=== PATIENT | male | born 1995 | race Caucasian/White ===

== ENCOUNTER 2023-03-18 08:33 | Emergency (ER) | payer OTHER, SELFPAY ==
[2023-03-18 08:59] VITALS: BP 112/45; PULSE 83; RESP 16; TEMP 36.9; O2SAT 99
--- NOTE | 2023-03-18 09:06 | ED.EXTPRO ---
HPI - Extremity Problem General Chief complaint: Extremity Problem,Nontraumatic Stated complaint: left thumb issue Time Seen by Provider: 03/18/23 09:06 Source: patient Mode of arrival: ambulatory Limitations: no limitations History of Present Illness HPI Narrative: 27 yo M presents with redness, swelling and pain to L thumb since yesterday. States cut himself while working at [employer] two days ago. Unsure what he cut himself on. Woke up this AM with red streaks and pain to L upper extremity Afebrile. full ROM to L arm/thumb. All systems reviewed and negative except as noted above. Related Data Home Medications Medication Instructions Recorded Confirmed No Home Medications 03/18/23 03/18/23 Allergies Allergy/AdvReac Type Severity Reaction Status Date / Time SHELLFISH Allergy Unknown THROAT Uncoded 03/18/23 09:03 TICKLES, VOMITS Review of Systems Review of Systems: CONSTITUTIONAL: Denies fever, chills, or sweats. EYES: Denies visual changes, redness, or discharge. ENT: Denies rhinorrhea, congestion, sore throat, or otalgia. CARDIOVASCULAR: Denies chest pain, palpitations, or edema. RESPIRATORY: Denies cough or dyspnea. GASTROINTESTINAL: Denies abdominal pain, nausea, vomiting, or diarrhea. GENITOURINARY: Denies dysuria or hematuria. SKIN: Reports redness, swelling and pain to left thumb with red streaks and pain traveling left upper extremity. MUSCULOSKELETAL: Denies back pain, joint pain, or myalgia. NEUROLOGIC: Denies headache, numbness, or weakness. PSYCHIATRIC: Denies anxiety or depression. All other systems reviewed are negative, except as documented in HPI. PMFSH Comments At time of signature, agree with nursing past medical, surgical, social and family history. There is no relevant family history pertinent to the presenting complaint. Exam Narrative: GENERAL: This is a well-nourished, well-developed patient, in no apparent distress. HEAD: normocephalic, atraumatic. EYES: PERRL. Sclera clear/white. Vision is grossly intact. EARS: External ears normal NOSE: External nose normal NECK: Neck supple, non-tender without lymphadenopathy, masses or thyromegaly. CARDIOVASCULAR: Regular rate and rhythm without murmurs, gallops, or rubs. RESPIRATORY: Clear to auscultation. Breath sounds equal bilaterally. No wheezes, rales, or rhonchi. SKIN: warm, Dry, intact with no suspicious lesions or rash, good texture and turgor. NEURO: awake, alert, and oriented to person, place and time. There were no obvious focal neurologic abnormalities. EXTREMITIES: No joint tenderness, effusion. redness, swelling and fluctuance to L thumb approx. 2 cm diameter with 3 to 4 red streaks traveling up L arm to axilla. Course Course Level of Care: Express Care Visit Vital Signs Vital signs: Vital Signs Temperature 36.9 C 03/18/23 08:59 Pulse Rate 83 03/18/23 08:59 Respiratory Rate 16 03/18/23 08:59 Blood Pressure 112/45 L 03/18/23 08:59 Pulse Oximetry 99 03/18/23 08:59 Temperature 36.9 C 03/18/23 08:59 Pulse Rate 83 03/18/23 08:59 Respiratory Rate 16 03/18/23 08:59 Blood Pressure 112/45 L 03/18/23 08:59 Pulse Oximetry 99 03/18/23 08:59 Reviewed Transfer Transfered to: [facility]: Other ( private car) Transfer rationale: transferring to ER for further evaluation of left upper extremity lymphangitis with abscess to left thumb. Accepting physician: Garrett POWERS MDM - Extremity (Nontraumatic) MDM Narrative Medical decision making narrative: Patient is aware of diagnosis, understands and agrees to treatment plan. Anticipatory guidance given. Patient agrees to follow-up as directed and is aware of reasons to seek care at the emergency department. Portions of this record may have been created with voice recognition software Differential Diagnosis Differential diagnosis: Likely other ( Abscess, lymphangitis) Discharge Plan Discharge C
== END 2023-03-18 10:04 | disposition short-term general hospital (02) ==
PROVIDERS: Emergency Provider Nurse Practitioner Family
DX: L02.512 Cutaneous abscess of left hand (principal); L03.124 Acute lymphangitis of left upper limb; W45.8XXA Other foreign body or object entering through skin, initial encounter
CPT/HCPCS: 99212; G0463

== ENCOUNTER 2023-03-18 11:45 | Emergency (ER) | payer OTHER, SELFPAY ==
--- NOTE | ~2023-03-18 | XR_ITS ---
EXAMINATION: XR hand LT min 3V DATE: 03/18/2023 15:00 INDICATION: Left thumb swelling. TECHNIQUE: 3 views of left hand were obtained. COMPARISON: Left hand radiographs 11/03/2012 FINDINGS: Bone alignment is normal. No acute fracture. There is an old healed fracture of diaphysis o f second metacarpal. Joint spaces are normal. IMPRESSION: 1. No acute fracture. 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 No acute fracture.
[2023-03-18 11:55] VITALS: BP 112/63; PULSE 72; RESP 18; TEMP 36.3; O2SAT 100
[2023-03-18 14:42] VITALS: BP 105/63; PULSE 71; RESP 18; O2SAT 95
--- NOTE | 2023-03-18 14:45 | ED.UPPEXIN ---
HPI - Extremity Injury (Upper) General Chief Complaint: Extremity Injury, Upper Stated Complaint: infection in left arm Time Seen by Provider: 03/18/23 14:24 History of Present Illness HPI narrative: Patient is a 27-year-old healthy male here with left thumb infection. He states that 2-3 days ago he was working at [employer] and cut it on an unknown object. He states that he has had some swelling over that thumb which began yesterday. Today he started noting red streaks up his arm and went to an urgent care. Urgent care referred him into the emergency department given concern for abscess with lymphangitis. He denies any IV drug use, denies any history of recurrent abscesses or MRSA. He denies any associated fever, chills, malaise, nausea, vomiting. No known antibiotic allergies. He is not a diabetic. He does note that he is right handed. Related Data Home Medications Medication Instructions Recorded Confirmed No Home Medications 03/18/23 03/18/23 Allergies Allergy/AdvReac Type Severity Reaction Status Date / Time SHELLFISH Allergy Unknown THROAT Uncoded 03/18/23 14:43 TICKLES, VOMITS Review of Systems Review of Systems: All systems reviewed & are unremarkable except as noted in HPI and below Exam Narrative: GENERAL: Well-appearing, well-nourished, and in no acute distress. HEAD: Normocephalic, atraumatic. EYES: PERRLA and EOMI. ENT: Nares clear. Mucous membranes moist. NECK: Supple. CHEST: Clear to auscultation. No respiratory distress. HEART: Regular rate and rhythm. Normal peripheral pulses. ABDOMEN: Soft, nontender, nondistended. EXTREMITIES: Patient has isolated 2 cm abscess over the dorsum of the left thumb, some surrounding erythema suggestive of cellulitis. Streaking erythema tracks through the right proximal thumb and up into the arm extending past the elbow. He does have some limited range of motion of the thumb due to the swelling. No tenderness over the flexor surface. Normal capillary refill. SKIN: Warm, dry, redness as described above. NEURO: No focal deficits. Alert and oriented x3. PSYCH: Normal mood and affect. Course Course Emergency Course: Chart review performed. Patient here with finger laceration and concern for infection. Triage vitals grossly normal. Urgent care note reviewed from today. They note swelling and pain to left thumb since yesterday. Was referred to the ED. Lab work reviewed, white blood cell count 7.8, electrolytes grossly normal aside from a potassium of 3.3. CRP is 1.6. X-ray negative with no obvious foreign body or fracture appreciated. Spoke with Dr. Carrion regarding infection, requests I do a stab incision to relieve some pressure and he will see patient tomorrow. Continue with antibiotics and Small I&D performed, about 1cc of purulent discharge appreciated. Will discuss admission with hospitalist. Spoke with hospitalist regarding admission, they accept him. Notified by nursing staff the patient walked out. Patient is eloped from the emergency department without completion of treatment. Vital Signs Vital signs: Vital Signs Temperature 97.4 F L 03/18/23 11:55 Pulse Rate 72 03/18/23 11:55 Respiratory Rate 18 03/18/23 11:55 Blood Pressure 112/63 03/18/23 11:55 Pulse Oximetry 100 03/18/23 11:55 Temperature 97.4 F L 03/18/23 11:55 Pulse Rate 73 03/18/23 18:01 Respiratory Rate 16 03/18/23 18:01 Blood Pressure 115/66 03/18/23 18:01 Pulse Oximetry 100 03/18/23 18:01 Procedures Abscess I/D hand: Date of Incision: 03/18/23 Time of Incision: 18:51 Side (if applicable): left Local Anesthetic: lidocaine 1% Amount of anesthesia used (mL): 2 Technique: incised with #11 blade Amount of fluid expressed (mL): 1 Irrigation: No Packing used?: none I&D Results: Pus and Blood MDM - Extremity Injury (Upper) Lab Data 03/18/23 15:09
[2023-03-18 15:17] LABS: Basophils Percent Auto 0.5 % (0.2-1.2); Eosinophils Absolute Auto 0.1 K/mm3 (0-0.3); Eosinophils Percent Auto 1.7 % (0-4.4); Hematocrit 38.9 % (42.0-52.0); Immature Granulocyte Absolute 0.01 K/mm3 (0.00-0.031); Immature Granulocyte Percent A 0.1 % (0-0.5); Lymphocytes Absolute Auto 1.52 K/mm3 (0.9-3.2); Lymphocytes Percent Auto 19.6 % (18.3-44.2); Mean Corpuscular HGB Conc 33.4 g/dl (32-36); Mean Corpuscular Hemoglobin 30.4 pg (26-34); Mean Corpuscular Volume 90.9 fl (80-100); Mean Platelet Volume 9.9 fl (7.4-10.4); Monocytes Absolute Auto 0.6 K/mm3 (0.1-0.6); Monocytes Percent Auto 8.1 % (2.6-8.5); Neutrophils Absolute Auto 5.4 K/mm3 (1.3-6.7); Platelet Count Result 184 k/mm3 (150-375); Red Blood Count 4.28 M/mm3 (4.6-6.20); Red Cell Distribution Width 11.9 % (11.5-14.5); White Blood Count 7.8 K/mm3 (4.5-10.0)
[2023-03-18 15:25] LABS: Lactic Acid Reflex 1.5 mmol/L (0.7-2.0)
[2023-03-18 15:27] LABS: Prothrombin Time 13.8 Seconds (11.1-14.7)
[2023-03-18 15:28] LABS: Partial Thromboplastin Time 31.4 SECONDS (22.3-36.8)
[2023-03-18 15:30] LABS: Alanine Aminotransferase 12 U/L (6-50); Albumin Level 4.6 g/dL (3.5-5.1); Alkaline Phosphatase 51 U/L (38-126); Anion Gap 10 mmol/L (8-16); Aspartate Amino Transferase 19 U/L (17-59); Bilirubin,Total 0.5 mg/dL (0.2-1.3); Blood Urea Nitrogen 9 mg/dL (9-20); CRP 1.6 mg/dL (<1.0); Calcium 8.8 mg/dL (8.4-10.2); Carbon Dioxide 24 mmol/L (22-30); Chloride 103 mmol/L (98-107); Estimated CRCL calculation 150 ml/min; Estimated Glomerular Filt Rate > 60; Glucose 81 mg/dL (65-110); Potassium 3.3 mmol/L (3.4-5.0); Sodium 137 mmol/L (137-145)
[2023-03-18 15:49] LABS: Erythrocyte Sedimentation Rate 14 mm/hr (0-20)
[2023-03-18] MEDS: ceFAZolin 2 GM/D5W 50 ML 2 GM/50 ML BAG IVPB (16:27)
[2023-03-18 16:29] VITALS: BP 111/70; PULSE 91; RESP 16; O2SAT 99
[2023-03-18 17:06] VITALS: BP 109/66; PULSE 73; RESP 16; O2SAT 100
[2023-03-18 17:14] VITALS: BP 119/72; PULSE 80; RESP 16; O2SAT 100
[2023-03-18 18:01] VITALS: BP 115/66; PULSE 73; RESP 16; O2SAT 100
--- NOTE | 2023-03-18 19:20 | PC.NURSE ---
Went to pt room to give bedside report, discovered pt not in room. Looked around ED and in waiting room and still unable to locate pt. Charge nurse notified. [place] police dispatch called and notified since pt had an IV in place and it was not seen in the pt's bed or in the trash. Was told they would send officers and call back with an update
== END 2023-03-18 19:29 | disposition left against medical advice (07) ==
PROVIDERS: Emergency Provider Student in an Organized Health Care Education/Training Program
DX: L02.512 Cutaneous abscess of left hand (principal)
CPT/HCPCS: 10060; 36415; 73130; 80053; 83605; 85025; 85610; 85652; 85730; 86140; 87040; 96365; 99284; J0690